=== PATIENT | female | born 1980 | race Caucasian/White ===

== ENCOUNTER 2019-06-14 00:05 | Emergency (ER) | payer BC ==
--- NOTE | 2019-06-14 00:50 | EDM.PDOC ---
ED HPI GENERAL MEDICAL PROBLEM - General Chief Complaint: General Stated Complaint: fever,body aches, cough Time Seen by Provider: 06/14/19 00:20 Source of Information: Reports: Patient, Family (Mother), Old Records ([facility] EMR. No paper hospital chart available.) History Limitations: Reports: No Limitations - History of Present Illness INITIAL COMMENTS - FREE TEXT/NARRATIVE: The patient was brought to the emergency room via private automobile by her mother for evaluation of generalized arthralgias during the last 24 hours with fever of 103 earlier today. Patient did take 650 mg of Tylenol at 22:00 hours with no known exposure to infection. She has not had her influenza booster this season. No recent history of abdominal pain, heartburn, nausea, diarrhea, melena , gross hematochezia, or any food intolerance, including fatty foods, etc.. She has had a mild nonproductive cough and wheezing, dyspnea, etc. No history of gross hematuria, colic, or other UTI symptoms. Onset: Gradual Onset Date: 06/13/19 Onset Time: 01:00 Duration: Constant, Getting Worse Location: Reports: Generalized Quality: Reports: Ache, Same as Previous Episode Severity: Moderate Improves with: Reports: None Worsens with: Reports: None Context: Reports: Other (As above). Denies: Sick Contact, Trauma Associated Symptoms: Reports: Cough, Fever/Chills. Denies: Confusion, Chest Pain, cough w sputum, Diaphoresis, Headaches, Loss of Appetite, Malaise, Nausea/ Vomiting, Shortness of Breath, Syncope, Weakness Treatments FIBER OPTICS ENGINEER: Reports: Acetaminophen Generalized Pain Score (Numeric/FACES): 8 - Related Data Allergies Allergy/AdvReac Type Severity Reaction Status Date / Time No Known Allergies Allergy Verified 12/03/16 23:45 Home Meds: Home Meds Levothyroxine Sodium [Synthroid] 125 mcg PO DAILY 12/03/16 [History] Amoxicillin/Potassium Clav [Augmentin 875-125 Tablet] 1 each PO BIDMEALS #20 tablet 06/14/19 [Rx] Dextromethorphan/guaiFENesin [Mucinex DM ER 600-30 MG] 1 tab PO BID #20 tab.er 06/14/19 [Rx] metFORMIN [Glucophage] 500 mg PO DAILY 06/14/19 [History] Past Medical History HEENT History: Reports: Impaired Vision, Other (See Below). Denies: Allergic Rhinitis, Hard of Hearing, Otitis Media, Retinal Detachment, Sinusitis Other HEENT History: Patient wears soft contact lenses and glasses. Cardiovascular History: Reports: None. Denies: Afib, Aneurysm, Arrhythmia, Blood Clots/VTE/DVT, CAD, Heart Murmur, High Cholesterol, Hypertension, AR, Syncope Respiratory History: Reports: Asthma, Bronchitis, Recurrent, Other (See Below). Denies: COPD, Intubation, Difficult, Intubation, Previous, PE, Pneumothorax, Sleep Apnea Other Respiratory History: Possible reactive airway disease secondary to infection. Gastrointestinal History: Reports: None. Denies: Celiac Disease, Cholelithiasis , Chronic Constipation, Chronic Diarrhea, Fecal Incontinence, Gastritis, GERD, GI Bleed, Hiatal Hernia, Inflammatory Bowel Disease, Irritable Bowel Syndrome, Jaundice, PUD Genitourinary History: Reports: None. Denies: Acute Renal Failure, Chronic Renal Insuffiency, Renal Calculus, STD, Urinary Incontinence, UTI, Recurrent FLUID POWER MECHANIC History: Reports: Dysfunctional Uterine Bleeding, . Denies: Endometriosis, Fibroids, Polycystic Ovaries, Spontaneous : 1 Para: 1 LMP (Approximate): Other (See Below) Other FLUID POWER MECHANIC History: LMP 03/10/19 with recent removal of her IUD/Mirena. Additional diabetes with delivery by at full-term secondary to macrosomia. Musculoskeletal History: Reports: None. Denies: Arthritis, Fracture, Gout, Osteoarthritis, RA, SLE Neurological History: Reports: None, Headaches, Chronic. Denies: Cerebral Aneurysms, Concussion, CVA, Head Trauma, Migraines, MS, Neuropathy, Peripheral, Parkinson's, Seizure, TIA Psychiatric History: Reports: None. 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 Hematologic History: Reports: None. Denies: Anemia, Blood Transfusion(s), Iron Deficiency Immunologic History: Reports: None. Denies: AIDS, HIV, SLE Oncologic (Cancer) History: Reports: None. Denies: Basal Cell Carcinoma, Breast , Cervix, Colon, Hodgkin's Lymphoma, Leukemia, Lymphoma, Malignant Melanoma, Non -Hodgkin's Lymphoma, Ovarian, Squamous Cell Carcinoma, Uterine Dermatologic History: Reports: None. Denies: Eczema, Psoriasis - Infectious Disease History Infectious Disease History: Reports: Chicken Pox. Denies: C-Difficile, Measles , Meningitis, Mononucleosis, MRSA, Mumps, Pertussis (Whooping Cough), Rheumatic Fever, Rubella, Scarlet Fever, Shingles, TB, VRE - Past Surgical History Head Surgeries/Procedures: Reports: None HEENT Surgical History: Reports: Adenoidectomy, Tonsillectomy, Other (See Below) . Denies: Cataract Surgery, Eye Surgery, Laser Surgery, LASIK, Myringotomy w Tube(s), Naso-Sinus Surgery, Oral Surgery Other HEENT Surgeries/Procedures: Tonsillectomy and adenoidectomy at age 3. [place] teeth extraction4 at time of braces application age 14. Cardiovascular Surgical History: Reports: None. Denies: Varicose Respiratory Surgical History: Reports: None. Denies: Thoracentesis GI Surgical History: Reports: None. Denies: Appendectomy, Cholecystectomy, Colonoscopy, EGD, Hernia, Abdominal, Hernia, Inguinal, Hernia Repair/Other Female Surgical History: Reports: Section. Denies: D&C, Tubal Ligation Endocrine Surgical History: Reports: Thyroid Biopsy Other Endocrine Surgeries/Procedures: Fine Needle aspiration biopsies of the thyroid gland 3 for benign disease in 2018. Neurological Surgical History: Reports: None. Denies: C-Spine, Discectomy, Laminectomy, Lumbar Spine, Sacral Spine, Spinal Fusion, Thoracic Spine, Vertebroplasty Musculoskeletal Surgical History: Reports: None. Denies: Arthroscopic Procedure , Carpal Tunnel, Ganglion Cyst, Joint Replacement, ORIF, Shoulder Surgery Oncologic Surgical History: Reports: None Dermatological Surgical History: Reports: None Social & Family History - Tobacco Use Smoking Status *Q: Former Smoker Tobacco Use Within Last Twelve Months: No Years of Tobacco use: 21 Packs/Tins Daily: 1 Packs/Tins Daily Comment: Smoked between ages 15 and 36. Used Tobacco, but Quit: Yes Smoking Cessation Information Provided To Patient: No Second Hand Smoke Exposure: No Source of Second Hand Smoke Exposure: to his tobacco. Second Hand Smoke Education Provided: Yes - Caffeine Use Caffeine Use: Reports: Coffee (1 Cup 23 times per month), Soda (Occasional). Denies: Energy Drinks, Tea - Alcohol Use Alcohol Use History: Yes Days Per Week of Alcohol Use: 0 Number of Drinks Per Day: 9 Number of Drinks Per Day Comment: Wine coolers 2 times per month. No previous DWIs, problems with alcohol abuse, etc. Total Drinks Per Week: 0 Alcohol Use in Last Twelve Months: Yes Alcohol Use Frequency: Binges - Recreational Drug Use Recreational Drug Use: No Drug Use in Last 12 Months: No Recreational Drug Type: Denies: Amphetamines (Speed), Cocaine, Heroin, Inhalants (Glues, Solvents, Aerosols), LSD (Acid), Marijuana/Hashish, Methamphetamine, Morphine, Oxycodone - Living Situation & Occupation Living situation: Reports: (2016), with Family (, daughter, and stepdaughter) Occupation: Employed ([employer]) ED ROS GENERAL - Review of Systems Review Of Systems: Comprehensive ROS is negative, except as noted in HPI. ED EXAM, GENERAL - Physical Exam Exam: See Below Exam Limited By: No Limitations General Appearance: Alert, WD/WN, No Apparent Distress Eye Exam: Bilateral Eye: EOMI, Normal Inspection (No nystagmus. Soft contact lenses.), PERRL Ears: Normal External Exam, Normal Canal, Hearing Grossly Normal, Normal TMs ( Although moderate scarring of the left TM) Nose: Normal Mucosa, No Blood, Clear Rhinorrhea Throat/Mouth: Normal Lips, Normal Teeth, Normal Gums, Normal Voice, No Airway Compromise. No: Normal Oropharynx (Trace erythema in the posterior pharynx with no pinpoint white exudates. Status post tonsillectomy), Dysphagia, Perioral Cyanosis Head: Atraumatic, Normocephalic. No: Facial Swelling, Facial Tenderness, Sinus Tenderness Neck: Normal Inspection, Supple, Non-Tender, Full Range of Motion. No: Lymphadenopathy (L), Lymphadenopathy (R), Thyromegaly Respiratory/Chest: No Respiratory Distress, Lungs Clear, Normal Breath Sounds, No Accessory Muscle Use, Chest Non-Tender. No: Pleural Rub, Retractions Cardiovascular: Normal Peripheral Pulses, No Edema, No Gallop, No JVD, No Murmur , No Rub, Tachycardia (Secondary to fever. Regular rhythm). No: Gallop/S3, Gallop/S4, Friction Rub Peripheral Pulses: 2+: Radial (L), Radial (R) GI/Abdominal: Normal Bowel Sounds, Soft, Non-Tender, No Organomegaly, No Distention, No Abnormal Bruit, No Mass, Other (Obese). No: Guarding (Female) Exam: Deferred Rectal (Female) Exam: Deferred Back Exam: Normal Inspection, Full Range of Motion. No: CVA Tenderness (L), CVA Tenderness (R), Muscle Spasm Extremities: Normal Inspection, Normal Range of Motion, Non-Tender, No Pedal Edema, Normal Capillary Refill. No: Francis's Sign Neurological: Alert, Oriented, CN II-XII Intact, Normal Cognition, Normal Gait, No Motor/Sensory Deficits Psychiatric: Normal Affect, Normal Mood Skin Exam: Warm, Dry, Intact, Normal Color, No Rash, Tattoo(s). No: Diaphoretic , Wound/Incision Lymphatic: No Adenopathy Course - Vital Signs Last Recorded V/S: Last Vital Signs Temp 36.8 C 06/14/19 00:35 Pulse 116 H 06/14/19 00:35 Resp 20 06/14/19 00:35 BP 130/90 06/14/19 00:35 Pulse Ox 95 06/14/19 00:35 Vital Signs - 24 hr 06/14/19 00:35 Temperature [ 36.8 C Temporal] Pulse, 116 H Peripheral [ Left Pulse Oximetry] Respiratory 20 Rate Blood Pressure 130/90 [Left Upper Arm ] O2 Sat by Pulse 95 Oximetry - Orders/Labs/Meds Orders: Active Orders 24 hr Category Date Time Status CULTURE STREP A CONFIRMATION [] Stat Lab 06/14/19 00:39 Results STREP SCRN A RAPID W CULT CONF [] Stat Lab 06/14/19 00:39 Results Obtain Past Medical Record [OM.PC] Routine Oth 06/14/19 00:26 Active Labs: Microbiology 06/14/19 00:39 Group A Streptococcus Rapid Screen - Final Throat 06/14/19 00:39 Influenza Type A Antigen Screen - Final Nasal, Right NEGATIVE INFLUENZA A VIRUS AG REFERENCE RANGE: NEGATIVE Influenza Type B Antigen Screen - Final NEGATIVE INFLUENZA B VIRUS AG REFERENCE RANGE: NEGATIVE Note that despite multiple attempts rapid strep screen results were inconclusive and set up for culture and sensitivity. Meds: None - Radiology Interpretation Free Text/Narrative:: None Departure - Departure Time of Disposition: 02:36 Disposition: Home, Self-Care 01 Condition: Good Clinical Impression: Hypothyroidism (acquired), Obesity (BMI 30-39.9) URI (upper respiratory infection) Qualifiers: URI type: acute tracheitis Airway obstruction: without obstruction Qualified Code(s): J04.10 - Acute tracheitis without obstruction Diabetes mellitus Qualifiers: Diabetes mellitus type: type 2 Diabetes mellitus terminal operations supervisor insulin use: without terminal operations supervisor use Diabetes mellitus complication status: without complication Qualified Code(s): E11.9 - Type 2 diabetes mellitus without complications - Discharge Information *PRESCRIPTION DRUG MONITORING PROGRAM REVIEWED*: Not Applicable *COPY OF PRESCRIPTION DRUG MONITORING REPORT IN PATIENT AMY: Not Applicable Prescriptions: Amoxicillin/Potassium Clav [Augmentin 875-125 Tablet] 1 each PO BIDMEALS #20 tablet Dextromethorphan/guaiFENesin [Mucinex DM ER 600-30 MG] 1 tab PO BID #20 tab.er Instructions: Upper Respiratory Infection, Adult, [id number] Referrals: Karey Lakhani MATERIALS TECHNICIAN [Primary Care Provider] - Forms: ED Department Discharge Additional Instructions: 1. Follow up with your regular provider in 10-14 days as needed, if symptoms persist. Bring these discharge instructions with you to that visit.. 2. Tylenol 650 mg by mouth every 4 hours and/or OTC ibuprofen 2-3 tabs by mouth every 6 hours with food as directed./needed. You may stagger these medications for 48-72 hours only, which essentially means that you are receiving a pain medication about every 2 hours. 3. Listerine gargles four times per day, after meals and at bedtime, with additional Chloroseptic lozenges or spray as needed for 10 days and/or until symptoms resolve. 4. Hygiene precautions as discussed 5. Have your discontinue chewing tobacco use [place] as discussed. 6. Obtain your influenza booster [place] once you are fever free and symptoms have improved. 7. Immediately after this visit verify that your cellular telephone's voicemail has been activated and is empty. Also verify that your home telephone 's answering machine is operating properly and has space to receive messages. Note that it is sometimes necessary for us to be able to contact you at a later date to discuss your medical care. 8. Please remember that we are ALWAYS here for you and want to answer any questions you may have. Feel free to call the hospital any time and we call you back [place]. - Problem List & Annotations (1) URI (upper respiratory infection) SNOMED Code(s): 83691044 Code(s): J06.9 - ACUTE UPPER RESPIRATORY INFECTION, UNSPECIFIED Status: Acute Priority: High Current Visit: Yes Onset Date: ~06/13/19 Annotation /Comment:: Viral bronchitis with symptomatic relief as per discharge instructions. She does not need a work excuse. Hygiene issues were discussed. History of possible reactive airway disease however normal pulmonary exam today. Note despite multiple taps rapid strep screen improved inconclusive. Her daughter, who is also being evaluated in the emergency room at the same time, did a positive rapid strep screen later this morning. Telephone consultation at about 10:00 a.m. with the patient addressing various treatment options, including waiting for throat culture and sensitivity results. Secondary to her strep exposure, current symptoms, previous fever, etc. she has elected to initiate therapy. Augmentin 875 mg by mouth twice a day with food, #20, no refills with diarrhea precautions, was e- prescribed to her pharmacy this morning, i.e., after the patient had already left the emergency room. Qualifiers: URI type: acute tracheitis Airway obstruction: without obstruction Qualified Code(s): J04.10 - Acute tracheitis without obstruction (2) Hypothyroidism (acquired) SNOMED Code(s): 236619163 Code(s): E03.9 - HYPOTHYROIDISM, UNSPECIFIED Status: Chronic Priority: Medium Current Visit: Yes Annotation/Comment:: Stable by history and currently under therapy. (3) Diabetes mellitus SNOMED Code(s): 30601453 Code(s): E11.9 - TYPE 2 DIABETES MELLITUS WITHOUT COMPLICATIONS Status: Chronic Priority: Medium Current Visit: Yes Annotation/Comment:: Stable by history. Blood sugars ranging in the 80s to 130s, including with current infection, with patient taking twice a day Accu-Cheks at home. Qualifiers: Diabetes mellitus type: type 2 Diabetes mellitus terminal operations supervisor insulin use: without terminal operations supervisor use Diabetes mellitus complication status: without complication Qualified Code(s): E11.9 - Type 2 diabetes mellitus without complications (4) Obesity (BMI 30-39.9) SNOMED Code(s): 645554395, 629057598 Code(s): E66.9 - OBESITY, UNSPECIFIED Status: Chronic Priority: Medium Current Visit: Yes Annotation/Comment:: No apparent history of previous hyperlipidemia. Weight loss in moderation advisable. - Problem List Review Problem List Initiated/Reviewed/Updated: Yes - My Orders Last 24 Hours: My Active Orders 06/14/19 00:26 Obtain Past Medical Record [OM.PC] Routine 06/14/19 00:39 CULTURE STREP A CONFIRMATION [RM] Stat STREP SCRN A RAPID W CULT CONF [RM] Stat - Assessment/Plan Last 24 Hours: My Active Orders 06/14/19 00:26 Obtain Past Medical Record [OM.PC] Routine 06/14/19 00:39 CULTURE STREP A CONFIRMATION [RM] Stat STREP SCRN A RAPID W CULT CONF [RM] Stat Assessment:: As above. Plan: As above. Extensive precautions were given to the patient, who is in agreement with the treatment plan. See Patient Instructions for further treatment and plan.
== END 2019-06-14 02:36 | disposition home or self-care (01) ==
LOC: LL.ED 00:05
DX: J04.10 Acute tracheitis without obstruction (principal); E03.9 Hypothyroidism, unspecified; E11.9 Type 2 diabetes mellitus without complications; E66.9 Obesity, unspecified; J45.909 Unspecified asthma, uncomplicated; Z68.41 Body mass index [BMI] 40.0-44.9, adult; Z87.891 Personal history of nicotine dependence; Z79.899 Other long term (current) drug therapy
CPT/HCPCS: 87081; 87804; 99283